=== PATIENT | male | born 1990 | race Caucasian/White ===

== ENCOUNTER → 2019-07-08 06:25 | Outpatient (CLI) | payer OTHER, SELFPAY ==
--- NOTE | 2019-07-08 | DI.MRI.S_ITS ---
PROCEDURE: MR KNEE RT WO CON INDICATIONS: RIGHT KNEE PAIN TECHNIQUE: Noncontrast sagittal PD fast spin echo and T2 fast spin echo with fat saturation, sagittal 3-D FLASH with fat saturation; coronal T1 spin echo and PD fast spin echo with fat saturation, and axial PD fast spin echo with fat saturation through the knee. COMPARISON: None. FINDINGS: Image quality: Excellent. Menisci: There is a bucket-handle tear of the medial meniscus with a flipped fragment extending centrally in the knee joint anterior to the posterior cruciate ligament. The lateral meniscus appears intact. The meniscal root ligaments appear intact. Cruciate ligaments: The anterior and posterior cruciate ligaments appear intact. Medial structures: The medial collateral ligament appears intact. There is mild edema along the medial collateral ligament as well as along the origin of the medial patellofemoral ligament which appears attenuated. The findings are suggestive of a mild sprain. The semimembranosus tendon insertions and meniscocapsular junction appear intact. Visualized portions of the pes anserinus tendons appear intact without associated bursal fluid collections. Lateral structures: The lateral collateral ligament, long and short heads of the biceps femoris tendon appear intact. The popliteus tendon appears intact. Iliotibial band appears normal. Anterior structures: The quadriceps and patellar tendons appear intact. Patellar alignment is normal. No femoral trochlear dysplasia or ventral trochlear prominence. Bones and cartilage: There is a small region of cortical bone marrow edema along the anteromedial aspect of the medial femoral condyle. No discrete fracture line identified. The cartilage of the medial and lateral femorotibial compartments, as well as the patellofemoral compartment, appears preserved in thickness. There is mild superficial chondral heterogeneity or fraying in the medial compartment. Joint space: There is a small to moderate joint effusion. No Lloyd's cyst. Normal appearing synovial plicae are incidentally noted. IMPRESSION: 1. Bucket-handle tear of the medial meniscus. 2. Mild edema along the MCL suggestive of a mild sprain as well as a mild sprain or partial tear along the origin of the medial patellofemoral ligament. 3. Small bone contusion peripherally in the medial femoral condyle without associated fracture. 4. Small to moderate joint effusion. Dictated by: Andrea Streeter M.D. on 07/08/2019 at 11:27 Approved by: Andrea Streeter M.D. on 07/08/2019 at 11:35
== END ==
DX: S83.211A Bucket-handle tear of medial meniscus, current injury, right knee, initial encounter (principal)
CPT/HCPCS: 73721

== ENCOUNTER 2022-12-18 13:21 | Day surgery (SDC) | payer OTHER, SELFPAY ==
[2022-12-18] VITALS (8 sets, daily range): BP systolic 106–145; BP diastolic 78–98; PULSE 75–97; RESP 13–18; TEMP 36.2–36.8; O2SAT 92–97; BMI 34.0
--- NOTE | 2022-12-18 | PATH_ITS ---
[facility] Accession Number: [id number] No. of containers..04 Tissue . 01 Material submitted: . PART A: gastrointestinal site - STOMACH BIOPSIES PART B: duodenum - DUODENAL BIOPSIES PART C: colon - RANDOM COLON BIOPSIES PART D: colon - SIGMOID COLON POLYP . 01 Clinical history: . A: R/O H.PYLORI B: R/O CELIAC C: R/O CROHN'S/MICROSCOPIC COLITIS . 01 Diagnosis: A. Stomach, Biopsies: Gastric antral and body mucosa with no diagnostic abnormality. No evidence of Helicobacter organisms on H/E stain. Negative for intestinal metaplasia. Negative for dysplasia or malignancy. . B. Duodenum, Biopsies: Duodenal mucosa with no diagnostic abnormality. Negative for active inflammation, features of sprue, dysplasia, or malignancy. . C. Random Colon, Biopsies: Colonic mucosa with no diagnostic abnormality. Negative for active, chronic, and microscopic colitis. Negative for dysplasia and malignancy. . D. Sigmoid Colon Polyp: Hyperplastic polyp. [facility] 12/24/2022 1245 Local . 01 Electronically signed: . Dinesh Arreola MD, PhD, Pathologist NPI- [id number] . 01 Gross description: . Part A: STOMACH BIOPSIES: Received in formalin are 2 fragment(s) of yuen, soft tissue measuring 0.2 x 0.2 x 0.1 cm to 0.2 x 0.1 x 0.1 cm submitted entirely in 1 cassette(s) Part B: DUODENAL BIOPSIES: Received in formalin is 1 fragment(s) of yuen, soft tissue measuring 0.3 x 0.2 x 0.1 cm submitted entirely in 1 cassette(s) Part C: RANDOM COLON BIOPSIES: Received in formalin are 4 fragment(s) of yuen, soft tissue measuring 0.3 x 0.2 x 0.2 cm to 0.1 x 0.1 x 0.1 cm submitted entirely in 1 cassette(s) Part D: SIGMOID COLON POLYP: Received in formalin is 1 fragment(s) of yuen, soft tissue measuring 0.3 x 0.1 x 0.1 cm submitted entirely in 1 cassette(s) /CPE 12/19/2022 0608 Local . 01 Pathologist provided ICD-10: R19.7, R13.14, K63.5 . 01 CPT . 834434, 863597, 102370, [id number] Specimen Comment: A courtesy copy of this report has been sent to [phone] Performed at: 01 [facility] [address] [facility], [place], [place] [id number] MD Andrea Bartlett MD Phone: [phone]
--- NOTE | 2022-12-18 14:25 | PM.PREOP ---
Pre-operative Note COVID-19 COVID-19 status: Negative Interval Note History & Physical reviewed/Exam performed by Physician: Yes Changes to H&P: No ASA Class (for procedural sedation): I
--- NOTE | 2022-12-18 14:26 | PM.OP.EC ---
Operative Date/Time/Diagnoses Date of procedure: 12/18/22 Pre-op diagnosis: See indication and findings Procedure & Clinicians Study performed: EGD and colonoscopy Indications: Dysphagia and heartburn and history of loose stools Surgeon: Rocio Espinal Procedure Notes Procedure in detail: After informed consent was obtained the patient was placed in left lateral decubitus position. The video upper scope placed into the oropharynx and with the patient's help swelled into the esophagus. The esophagus stomach and duodenum were carefully examined. On withdrawal retroflexed view the GE junction was performed. Patient was turned in the colonoscope substituted. This was easily passed the cecum. On slow withdrawal mucosa was carefully examined. The scope was removed. The patient tolerated procedure well. Blood loss none Complications none Sedation propofol Findings EGD 1. Distal esophagus with 1 erosion at the GE junction. This corresponds to [place] classification A esophagitis 2. No evidence for any mechanical cause of dysphagia 3. Mild patchy gastric erythema biopsies taken to rule out H pylori 4. Normal duodenal bulb and sweep biopsies taken to rule out celiac Colonoscopy 1. Normal colonoscopy to cecum biopsies taken randomly to rule out underlying colitis 2. 4 mm polyp in the distal sigmoid biopsied and removed completely 3. Rectal exam shows some baseline laxity. No evidence for inflammatory or mechanical lesion causing fecal incontinence Will be in touch regarding findings above. I would suggest that he remain on medications such as omeprazole for at least 8-12 weeks to see if he can not completely get rid of his heartburn which is already responded well to the medication.
== END 2022-12-18 15:35 | disposition home or self-care (01) ==
PROVIDERS: Referring Provider Internal Medicine Gastroenterology; Visit Provider Internal Medicine Gastroenterology
PROC: 0DJ08ZZ Inspection of Upper Intestinal Tract, Via Natural or Artificial Opening Endoscopic (ICD-10-PCS; CPT 43235; principal; 2022-12-18 14:30)
PROC: 0DJD8ZZ Inspection of Lower Intestinal Tract, Via Natural or Artificial Opening Endoscopic (ICD-10-PCS; CPT 45378; 2022-12-18 14:30)
DX: R19.7 Diarrhea, unspecified (principal); K21.9 Gastro-esophageal reflux disease without esophagitis; R13.10 Dysphagia, unspecified; K63.5 Polyp of colon
CPT/HCPCS: 43239; 45380; J3010

== ENCOUNTER → 2024-01-28 19:11 | Outpatient (CLI) | payer OTHER, SELFPAY ==
--- NOTE | 2024-01-28 | DI.MRI.S_ITS ---
PROCEDURE: MR SHOULDER RT WO/W CON INDICATIONS: Shoulder pain. Infection or mass in right shoulder after surgery. TECHNIQUE: Noncontrast oblique coronal T1 spin echo and T2 fast spin echo with fat saturation, oblique sagittal T1 spin echo and T2 fast spin echo with fat saturation, axial T1 spin echo and T2 fast spin echo with fat saturation through the shoulder. Post-contrast oblique coronal, oblique sagittal, and axial T1 spin echo with fat saturation through the shoulder. COMPARISON: [facility], MR, MR SHOULDER RIGHT WITHOUT CONTRAST, 01/05/2024, 18:30. FINDINGS: Image quality: Excellent. Rotator cuff: The supraspinatus, infraspinatus, and subscapularis tendons appear intact throughout. Sagittal images demonstrate no muscle atrophy. Bones and bursae: There is a focus of metallic artifact within the proximal humerus as before, with moderate surrounding STIR signal elevation enhancement, as before. No acromioclavicular joint degeneration. The acromion demonstrates conventional anatomy, without an os acromiale. No pathologic subacromial-subdeltoid or subcoracoid bursal fluid is present. Capsule and soft tissues: Labrum is grossly intact biceps tendon is not seen. At the anterior aspect of the proximal humerus in the region of metallic artifact, there is an ill-defined tubular region of ill-defined STIR signal elevation and enhancement which tracks anterolaterally through the biceps muscle into the overlying subcutaneous fat. The rotator interval appears normal, without fibrosis. The coracohumeral ligament is normal in thickness. IMPRESSION: 1. STIR signal elevation and enhancement within the soft tissues of the right upper arm as described above. Findings are compatible with expected postsurgical sequelae, but superimposed infection could produce a similar appearance. No evidence of neoplasm. 2. No significant change in marrow signal abnormalities within the proximal humerus. These are also consistent with postsurgical sequelae, but osteomyelitis could produce a similar appearance. 3. Biceps tendon tear. Dictated by: Mani Hood M.D. on 01/29/2024 at 9:33 Approved by: Mani Hood M.D. on 01/29/2024 at 9:55
== END ==
LOC: MRI 19:14
PROVIDERS: Referring Provider Orthopaedic Surgery; Visit Provider Orthopaedic Surgery
DX: S46.211A Strain of muscle, fascia and tendon of other parts of biceps, right arm, initial encounter (principal); M25.511 Pain in right shoulder; Z98.890 Other specified postprocedural states
CPT/HCPCS: 73223; A9579